=== PATIENT | male | born 1960 | race Caucasian/White ===

== ENCOUNTER 2020-09-14 12:59 | Emergency (ER) | payer BC, OTHER ==
--- OUTSIDE RECORDS SUMMARY | 2020-09-14 13:02 | XMS REPORT | Continuity of Care Document ---
:1960 Author Organization [facility] t Address [address] [place] [address] Care Team Providers Name Role Phone Sergio Thakkar DO Primary Care Physician Jluian WARREN L Attending Clinician Problems Condition Condition Condition Status Onset Resolution Last Treating Co mments Source Name Details Category Date Date Treatment Clinician Date Coronary Coronary Disease Active 2017-04 Overview: [place] artery artery 0-12 Formattin Methodi disease disease 00:00: g of this st involving involving 00 note kaibab kaibab might be coronary coronary different artery of artery of from the kaibab kaibab original. heart heart Added without without automatic angina angina ally from pectoris pectoris request for surgery [id number] Angina Angina Disease Active 2017-04 [place] pectoris pectoris 0-09 Method i 00:00: st 00 CAD in CAD in Disease Active 2015-04 [place] kaibab kaibab 11 Methodi artery artery 00:00: st 00 Essential Essential Disease Active 2015-04 Sophia ston hypertensi hypertensi -11 Me th[place] on on 00:00: st 00 Hyperchole Hyperchole Disease Active 2015-04 [place] sterolemia sterolemia 04-22 Me thodi 00:00: st 00 Presence Presence Disease Active 2015-04 [place] on of stent of stent 04-22 Method i in in 00:00: st coronary coronary 00 artery artery Allergies, Adverse Reactions, Alerts Allergy Allergy Status Severity Reaction(s) Onset Inactive Treating Comm ents Source Name Type Date Date Clinician Lilly Nunes Active Hives 2015-04 [place] xacin ty to 04-22 Method[facility] adverse 00:00: st reaction 00 s to drug Family History Family Member Diagnosis Comments Start Date Stop Date Source Other Coronary artery disease H davidson Pengist Social History Social Habit Start Date Stop Date Quantity Comments Source Tobacco use and 2018-10-25 2018-10-25 Never used Charan Marrero ethodist exposure 00:00:00 00:00:00 Alcohol intake 2018-10-25 2018-10-25 Current drinker of Anupam seth Rast[facility]arian 00:00:00 00:00:00 alcohol (finding) Tobacco Comment 2018-01-27 2018-01-27 Quit smoking 10 [place] [facility] 00:00:00 00:00:00 years ago Alcohol Comment 2016-02-21 2016-02-21 occasional [place] Elida ethodist 00:00:00 00:00:00 Sex Ass[birth year] [facility] ethodist 00:00:00 00:00:00 Smoking Status Start Date Stop Date Source Former smoker 2018-10-25 00:00:00 2018-10-25 00:00:00 [place] [facility] Medications Ordered Filled Start Stop Current Ordering Indication Dosage Frequency Signature Comments Components Source Medication Medication Date Date Medication? Clinician (SIG) Name Name HYDROcodone Yes hydrocodon [place] -acetaminop 04-25 e 10 Methodi hen (NORCO) 08:34: mg-acetami st 10-325 mg 09 nophen 325 per tablet mg tablet, 1 po qd lansoprazol Yes lansoprazo [place] e 04-25 le 30 mg Methodi (PREVACID) 08:34: capsule,de s t 30 MG 09 layed capsule release zolpidem CR 0 Yes zolpidem Anupam seth (AMBIEN CR) 14 ER 12.5 mg Me thodi 12.5 MG CR 08:34: tablet,ext s t tablet 09 ended release,mu ltiphase PRN clopidogrel 0 Yes 75mg Q.5D Take 75 mg Charan (PLAVIX) 75 -14 by mouth 2 Me thodi mg tablet 08:34: (two) st 09 times a day. gemfibrozil Yes 600mg Q.5D Take 600 H davidson (LOPID) 600 9-15 mg by Methodi MG tablet 00:00: mouth 2 st 00 (two) times a day. gabapentin 2018-0 Yes Q.5D Take by [place] 600 mg - mouth 2 Methodi tablet 00:00: (two) st extended 00 times a release 24 day. hr ezetimibe-a 2018-0 Yes QD daily. [place] torvastatin -24 Methodi 10-10 mg 00:00: st tablet 00 CYMBALTA 30 2017-0 Yes 30mg QD Take 30 mg [place] mg capsule 11-01 by mouth Metho di 00:00: daily. st 00 allopurinol 2018-0 Yes QD Take by Sophia ston (ZYLOPRIM) 11-01 mouth Methodi 300 MG 00:00: daily. st tablet 00 COZAAR 100 2017-0 Yes 100mg QD Take 100 [place] mg tablet 7-02 mg by Methodi 00:00: mouth st 00 daily. metoprolol 2018-0 Yes [place] ta-hydrochl 7-02 Methodi orothiaz 00:00: st (LOPRESSOR 00 HCT) 50-25 mg per tablet SINGULAIR 2018-0 Yes 10mg QD Take 10 mg [place] 10 mg 7-02 by mouth Methodi tablet 00:00: nightly. st 00 Procedures This patient has no known procedures. Plan of Care Planned Activity Planned Date Details Comments Source Future Scheduled 2020-11-10 INFLUENZA VACCINE [place] [facility] Test 00:00:00 [code = INFLUENZA VACCINE] Future Scheduled 2009-12-24 COLONOSCOPY SCREENING [place] [facility] Test 00:00:00 [code = COLONOSCOPY SCREENING] Future Scheduled 2009-12-24 SHINGLES VACCINES [place] [facility] Test 00:00:00 (#1) [code = SHINGLES VACCINES (#1)] Future Scheduled 1977-12-24 Hepatitis C screening [place] [facility] Test 00:00:00 (procedure) [code = 980888404] Future Scheduled 1971 COVID-19 VACCINE (1) Sophia ston [facility] Test 00:00:00 [code = COVID-19 VACCINE (1)] Encounters Start End Encounter Admission Attending Care Care Encounter Source Date/Time Date/Time Type Type Clinicians Facility Department ID 2019-05-19 2019-05-19 Office CHARLIE Jordan [id number] 08:42:07 09:08:14 Visit [facility] [id number] Surgical [id number] Specialti [id number] [address] Results This patient has no known results.
--- NOTE | 2020-09-14 14:34 | RAD REPORT ---
EXAM DESCRIPTION: RAD - Tib Fib Right - 09/14/2020 2:10 pm CLINICAL HISTORY: foreign body puncture wound COMPARISON: <Comparisons> FINDINGS: Metallic hook foreign body is seen in the anterior soft tissues of the leg projecting over the level of the fibula. No fracture.
[2020-09-14] MEDS ORDERED: LIDOCAINE 1% MPF 5 ML VIAL ONE (14:45)
[2020-09-14] MEDS ORDERED: TETANUS & DIPHTHERIA TOX,ADULT 0.5 ML VIAL ONE (14:45)
--- NOTE | 2020-09-14 15:12 | EDPHYS ---
Physician Documentation [facility] Name: Jw Morse Age: 59 yrs Sex: Male : 1960 Arrival Date: 09/14/2020 Time: 13:01 Bed 17 Private MD: Anna Thakkar H ED Physician Fabricio Bray HPI: 09/14 13:40 This 59 yrs old Male presents to ER via Ambulatory with complaints of Hook In pm1 leg. 13:40 The patient presents with a puncture wound. The complaints affect the lateral aspect of pm1 right calf. Context: The problem was sustained outdoors, resulted from Fishing, the patient can fully bear weight, the patient is able to ambulate, Problem is a result from a previous injury: No. Onset: The symptoms/episode began/occurred just prior to arrival. Modifying factors: The symptoms are alleviated by nothing. the symptoms are aggravated by nothing. Associated signs and symptoms: Pertinent negatives fever, numbness, swelling, tingling. Treatment prior to arrival includes: Patient attempted to take out the hook by cutting the hook entrance point with his knife. The patient has not experienced similar symptoms in the past. The patient has not recently seen a physician. Historical: - Allergies: 13:24 Ciprofloxacin; ss - PMHx: 13:24 Myocardial infarction; Hypertension; High Cholesterol; GERD; Degenerative disc disease; ss Arthritis; - PSHx: 13:24 cardiac stents; ss - Immunization history:: Adult Immunizations up to date, Last tetanus immunization: unknown. - Social history:: Smoking status: Patient denies any tobacco usage or history of. ROS: 13:40 Constitutional: Negative for fever, chills, and weight loss, Cardiovascular: Negative pm1 for chest pain, palpitations, and edema, Respiratory: Negative for shortness of breath, cough, wheezing, and pleuritic chest pain, Abdomen/GI: Negative for abdominal pain, nausea, vomiting, diarrhea, and constipation. 13:40 Neuro: Negative for headache, weakness, numbness, tingling, and seizure. 13:40 MS/extremity: Positive for puncture, of the lateral aspect of right calf, Negative for decreased range of motion. 13:40 Skin: Positive for puncture, of the lateral aspect of right calf. Exam: 13:40 Constitutional: This is a well developed, well nourished patient who is awake, alert, pm1 and in no acute distress. Head/Face: Normocephalic, atraumatic. 13:40 ENT: Mouth: Lips: normal, Oral mucosa: normal, pink and intact, moist. 13:40 Cardiovascular: Rate: normal, Rhythm: regular, Pulses: no pulse deficits are appreciated. 13:40 Respiratory: Exam negative for acute changes, respiratory distress, shortness of breath, Breath sounds: are clear throughout. 13:40 Musculoskeletal/extremity: Extremities: grossly normal except: noted in the lateral aspect of right calf: puncture, hook. 13:40 Skin: Appearance: normal except for affected area, injury, puncture(s), of the lateral aspect of right calf. 13:40 Neuro: Orientation: is normal, Mentation: is normal, Motor: is normal, moves all fours, Gait: is steady, at a normal pace, without difficulty. Vital Signs: 13:21 BP 156 / 84; Pulse 70; Resp 16; Temp 97.6(TE); Pulse Ox 98% on R/A; Weight 102.06 kg; ss Height 5 ft. 11 in. (180.34 cm); Pain 7/10; 13:21 Body Mass Index 31.38 (102.06 kg, 180.34 cm) ss Procedures: 15:06 Foreign Body Removal: a fishhook, from the right lateral aspect of right calf, by pm1 pushed hook through because unable to back hook out. The patient tolerated the removal well, wound irrigated copiously with betadine and NS. MDM: 13:38 Patient medically screened. [facility] 15:11 Data reviewed: vital signs. Counseling: I had a detailed discussion with the patient pm1 and/or guardian regarding: the historical points, exam findings, and any diagnostic results supporting the discharge/admit diagnosis, radiology results, the need for outpatient follow up, to return to the emergency department if symptoms worsen or persist or if there are any questions or concerns that arise at home. 09/14 13:40 Order name: Tib Fib Right XRAY; Complete Time: 15:13 pm1 09/14 15:11 Order name: Wound dressing; Complete Time: 15:13 pm1 Administered Medications: 14:33 Drug: Tetanus-Diphtheria Toxoid Adult 0.5 ml {Conveyor Weigher Operator: [employer]. Exp: tr6 09/14/2021. Lot #: [id number]. } Route: IM; Site: right deltoid; 15:06 Drug: Lidocaine (1 %) 5 ml {Note: given by JENNIFER Castro.} Volume: 5 ml; Route: tr6 Infiltration; 15:33 Drug: [place] (HYDROcodone-acetaminophen) 5 mg-325 mg 1 tabs Route: PO; tr6 15:33 Drug: Doxycycline 100 mg Route: PO; tr6 Disposition: 09/14/20 15:12 Discharged to Home. Impression: Puncture wound with foreign body, right lower leg. - Condition is Stable. - Discharge Instructions: Puncture Wound. - Prescriptions for Tylenol- Codeine #3 300-30 mg Oral Tablet - take 2 tablets by ORAL route every 6 hours As needed; 20 tablet. Doxycycline Hyclate 100 mg Oral Tablet - take 1 tablet by ORAL route every 12 hours; 20 tablet. - Medication Reconciliation Form, Thank You Letter, Antibiotic Education, Prescription Opioid Use form. - Follow up: Emergency Department; When: As needed; Reason: Worsening of condition. Follow up: Private Physician; When: 2 - 3 days; Reason: Recheck today's complaints, Continuance of care, Re-evaluation by your physician. - Problem is new. - Symptoms have improved. Addendum: 09/17/2020 07:40 Co-signature as Attending Physician, Fabricio Bray MD I agree with the assessment and c chacon plan of care. Signatures: Dispatcher [employer] [facility] Fabricio Bray MD MD cha Smirch, Shelby, RN RN ss Marinas, Patrick, NP SOFTWARE QUALITY ASSURANCE SPECIALIST pm1 Lacy Whitehead RN RN tr6 Corrections: (The following items were deleted from the chart) 09/14 15:38 15:12 09/14/2020 15:12 Discharged to Home. Impression: Puncture wound with foreign tr6 body, right lower leg. Condition is Stable. Forms are Medication Reconciliation Form, Thank You Letter, Antibiotic Education, Prescription Opioid Use. Follow up: Emergency Department; When: As needed; Reason: Worsening of condition. Follow up: Private Physician; When: 2 - 3 days; Reason: Recheck today's complaints, Continuance of care, Re-evaluation by your physician. Problem is new. Symptoms have improved. pm1
--- NOTE | 2020-09-14 15:12 | ER ---
Nurse's Notes [facility] Name: Jw Morse Age: 59 yrs Sex: Male : 1960 Arrival Date: 09/14/2020 Time: 13:01 Bed 17 Private MD: Anna Thakkar H Diagnosis: Puncture wound with foreign body, right lower leg Presentation: 09/14 13:21 Chief complaint: Patient states: hook in R lower leg that occurred 1.5 hours ago while ss fishing. Area is oozing with blood. Pt is on blood thinners. Coronavirus screen: Client denies travel out of the [place] in the last 14 days. Ebola Screen: Patient denies exposure to infectious person. Patient denies travel to an Ebola-affected area in the 21 days before illness onset. Initial Sepsis Screen: Does the patient meet any 2 criteria? No. Patient's initial sepsis screen is negative. Does the patient have a suspected source of infection? No. Patient's initial sepsis screen is negative. Risk Assessment: Do you want to hurt yourself or someone else? Patient reports no desire to harm self or others. Onset of symptoms was September 14, 2020. 13:21 Method Of Arrival: Ambulatory ss 13:21 Acuity: ENRIQUETA 4 ss Historical: - Allergies: 13:24 Ciprofloxacin; ss - PMHx: 13:24 Myocardial infarction; Hypertension; High Cholesterol; GERD; Degenerative disc disease; ss Arthritis; - PSHx: 13:24 cardiac stents; ss - Immunization history:: Adult Immunizations up to date, Last tetanus immunization: unknown. - Social history:: Smoking status: Patient denies any tobacco usage or history of. Screenin:54 Abuse screen: Denies threats or abuse. Denies injuries from another. Nutritional tr6 screening: No deficits noted. Tuberculosis screening: No symptoms or risk factors identified. Fall Risk None identified. Assessment: 13:52 General: Appears in no apparent distress. comfortable, Behavior is calm, cooperative, tr6 appropriate for age. Pain: Complains of pain in right tib fib. Neuro: No deficits noted. Cardiovascular: No deficits noted. Respiratory: No deficits noted. GI: No deficits noted. : No deficits noted. EENT: No deficits noted. Derm: No deficits noted. Musculoskeletal: No deficits noted. Injury Description: Foreign body is located right tib fib has fish hook lodged in skin. pt states that he tried to pull it out, but was unable to. currently site is coagulated blood and site is clean other rush. Vital Signs: 13:21 BP 156 / 84; Pulse 70; Resp 16; Temp 97.6(TE); Pulse Ox 98% on R/A; Weight 102.06 kg; ss Height 5 ft. 11 in. (180.34 cm); Pain 7/10; 13:21 Body Mass Index 31.38 (102.06 kg, 180.34 cm) ED Course: 13:01 Patient arrived in ED. mr 13:01 Anna Thakkar DO is Private Physician. mr 13:22 Triage completed. ss 13:24 Arm band placed on right wrist. ss 13:26 Otto Castro NP is PHCP. pm1 13:26 Fabricio Bray MD is Attending Physician. pm1 13:28 Lacy Whitehead RN is Primary Nurse. tr6 13:54 Patient has correct armband on for positive identification. Call light in reach. Side tr6 rails up X 1. 13:54 No provider procedures requiring assistance completed. tr6 14:10 Tib Fib Right XRAY In Process Unspecified. EDMS Administered Medications: 14:33 Drug: Tetanus-Diphtheria Toxoid Adult 0.5 ml {Survey Supervisor: [employer]. Exp: tr6 09/14/2021. Lot #: [id number]. } Route: IM; Site: right deltoid; 15:06 Drug: Lidocaine (1 %) 5 ml {Note: given by JENNIFER Castro.} Volume: 5 ml; Route: tr6 Infiltration; 15:33 Drug: [place] (HYDROcodone-acetaminophen) 5 mg-325 mg 1 tabs Route: PO; tr6 15:33 Drug: Doxycycline 100 mg Route: PO; tr6 Outcome: 15:12 Discharge ordered by . pm1 15:37 Discharged to home ambulatory, pt refused wheelchair tr6 15:37 Condition: good 15:37 Discharge instructions given to patient, family, significant other, Instructed on discharge instructions, follow up and referral plans. no drinking with medication, no driving heavy equipment, medication usage, safety practices, wound care, Demonstrated understanding of instructions, follow-up care, medications, wound care, Prescriptions given X 2. 15:38 Patient left the ED. tr6 Signatures: Dispatcher [employer] EDThais Stockton Shelby, RN RN ss Otto Castro, SKID MACHINE OPERATOR SKID MACHINE OPERATOR pm1 Lacy Whitehead RN RN tr6
[2020-09-14] MEDS ORDERED: DOXYCYCLINE 100 MG CAP PO ONE (15:41)
[2020-09-14 15:43] VITALS: BP 156/84; TEMP 97.6; O2SAT 98
[2020-09-14] MEDS ORDERED: HYDROCODONE/APAP 5/325 MG TAB ONE (15:47)
== END 2020-09-14 15:38 | disposition home or self-care (01) ==
LOC: ER 12:59
DX: S81.841A Puncture wound with foreign body, right lower leg, initial encounter (principal); I10 Essential (primary) hypertension; Z23 Encounter for immunization; Z95.818 Presence of other cardiac implants and grafts; Z88.1 Allergy status to other antibiotic agents
CPT/HCPCS: 90471; 90714; 99283

== ENCOUNTER 2021-09-18 12:43 | Emergency (ER) | payer OTHER ==
--- OUTSIDE RECORDS SUMMARY | 2021-09-18 12:47 | XMS REPORT | Continuity of Care Document ---
:1960 Author Organization [facility] t Address [address] [place] [address] [address] [place] [address] Care Team Providers Name Role Phone BLOOD Primary Care Physician Unavailable Sheryl LEARNING COORDINATOR Attending Clinician SHERYL Attending Clinician Unavailable JEET Attending Clinician Unavailable MD JEET R. Attending Clinician Unavailable Julian WARREN, L Attending Clinician Doctor Unassigned, Name Attending Clinician Unavailable JEET Admitting Clinician Unavailable MD JEET RCally Admitting Clinician Unavailable Payers Payer Name Policy Type Policy Number Effective Date Expiration Date [facility] [id number] 2021 [facility] 00:00:00 PPO Problems Condition Condition Condition Status Onset Resolution Last Treating Co mments Source Name Details Category Date Date Treatment Clinician Date No known No known Disease Unive rs active active ity of problems problems [facility] Allergies, Adverse Reactions, Alerts Allergy Allergy Status Severity Reaction(s) Onset Inactive Treating Comm ents Source Name Type Date Date Clinician CIPROFLO DRUG Active Unknown-Cmnt Un josé luis XACIN INGREDI 05-07 ity of 00:00: [place] 00 Medical Branch Ciproflo Propensi Active Unknown - Uni vers xacin ty to See comments 05-07 ity of adverse 00:00: [place] reaction 00 [facility] CIPROFLO DRUG Active Hives 2015-04 Univers XACIN INGREDI 04-22 ity of 00:00: [place] 00 [facility] Ciproflo Propensi Active Hives 2015-04 Univer s xacin ty to 04-22 ity of adverse 00:00: [place] reaction 00 Medical s Branch Social History Social Habit Start Date Stop Date Quantity Comments Source Exposure to Not sure [facility] SARS-CoV-2 (event) Medica l Branch Tobacco use and 2021-05-07 2021-05-07 Never used [facility] exposure 00:00:00 00:00:00 Medical Branch Sex [birth year] [facility] 00:00:00 00:00:00 Medical Branch Smoking Status Start Date Stop Date Source Unknown if ever smoked [facility] Never smoker [facility] [place] [facility] Branch Current every day smoker 2019-05-19 00:00[facility] Or[facility] F[facility] Start Stop Current Ordering Indication Dosage Frequency Signature Comments Components Source Medication Medication Date Date Medication? Clinician (SIG) Name Name benzonatate Yes [id number] 100mg Take 1 Univers (TESSALON 05-07 capsule by ity of TAYA) 100 00:00: mouth 3 Jb as mg capsule 00 (three) Medica l times Branch daily as needed for Cough. codeine-gua 2021- No 4647 5mL Take 5 mL Univers ifenesin 05-07 02-03 by mouth ity of 10-100 mg/5 00:00: 05:59 [place] 6 [place] mL oral 00 :00 (six) Medical solution hours as Branch needed for Cough for up to 7 days. Indication s: acute pain icosapent Yes Univers ethyL 1 1-20 ity of gram 00:00: [place] capsule 00 Medical Branch ezetimibe Yes Univers 10 mg 1-19 ity of tablet 00:00: Medical Branch DULoxetine Yes Univers 30 mg 1-10 ity of capsule 00:00: [place] [facility] gemfibroziL Yes Univer s 600 mg 1-10 ity of tablet 00:00: [place] [facility] montelukast Yes Univer s 10 mg 1-10 ity of tablet 00:00: [place] [facility] FENTanyl 25 0 Yes Univer s mcg/hr 1-05 ity of patch 00:00: [place] [id number] Medical Branch HYDROcodone 0 Yes Univer s -acetaminop 1-05 ity of hen 10-325 00:00: [place] mg tablet 00 Medical Branch amLODIPine 2020-04 Yes Univers 10 mg 2-20 ity of tablet 00:00: [place] 00 [facility] metoprolol 2020-04 Yes Univers succinate 2-20 ity of XL 50 mg 24 00:00: [place] hr tablet 00 Medical Branch prasugreL 2020-04 Yes Univers 10 mg 1-22 ity of tablet 00:00: [place] 00 [facility] rosuvastati 2020-04 Yes Univer s n 10 mg 1-22 ity of tablet 00:00: [place] 00 [facility] simvastatin 2020-04 Yes Univer s 20 mg 1-05 ity of tablet 00:00: [place] 00 [facility] traZODone 2020-04 Yes Univers 100 mg 1-05 ity of tablet 00:00: [place] 00 [facility] clopidogreL 2020-0 Yes 75mg Take 75 mg Univers 75 mg 2-07 by mouth. ity of tablet 14:48: [address] HYDROcodone 2020-0 Yes hydrocodon Univers -acetaminop 2-07 e 10 ity of hen 10-325 14:48: mg-acetami [place] mg tablet 40 nophen 325 Medi pradeep mg tablet, Branch 1 po qd lansoprazol 2020-0 Yes lansoprazo Univers e 30 mg 2-07 le 30 mg ity of capsule 14:48: capsule,de Jba s 40 lay Medical release [place] zolpidem 2020-0 Yes zolpidem Unive rs 12.5 mg CR 2-07 ER 12.5 mg ity of tablet 14:48: tablet,ext [place] 40 ended Medical release, Branch ltiphase PRN clopidogreL 2020-0 Yes 75mg Take 75 mg Univers 75 mg 2-07 by mouth. ity of tablet 14:48: [address] HYDROcodone 2020-0 Yes hydrocodon Univers -acetaminop 2-07 e 10 ity of hen 10-325 14:48: mg-acetami [place] mg tablet 40 nophen 325 Medi pradeep mg tablet, Branch 1 po qd lansoprazol 2020-0 Yes lansoprazo Univers e 30 mg 2-07 le 30 mg ity of capsule 14:48: capsule,de [place] 40 lay[place] Medical release [place] zolpidem 2020-0 Yes zolpidem Unive rs 12.5 mg CR 2-07 ER 12.5 mg ity of tablet 14:48: tablet,ext [place] 40 ended Medical release,mu Branch ltiphase PRN methylPREDN 2020-0 Yes [id number] Take by [facility] 05-19 9107 mouth ity of (MEDROL, 00:00: SEE-INSTRU Jb as HARMEET,) 4 mg 00 CTIONS. Medica l tablets follow Branch package directions methylPREDN 2020-0 Yes [id number] Take by [facility] 05-19 9107 mouth ity of (MEDROL, 00:00: SEE-INSTRU Jb as HARMEET,) 4 mg 00 CTIONS. Medica l tablets follow Branch package directions lidocaine 5 2020-0 Yes Univer s % (700 2-03 ity of mg/patch) 00:00: [place] patch 00 Medical Branch lidocaine 5 2020-0 Yes Univer s % (700 2-03 ity of mg/patch) 00:00: [place] patch 00 Medical Branch proMETHazin 2020-0 Yes TAKE 1 Univ ers e 25 mg 1-17 TABLET BY ity of tablet 00:00: MOUTH 00 DAILY Medical NEEDED FOR Branch NAUSEA MAY MAKE DROWSY proMETHazin 2020-0 Yes TAKE 1 Univ ers e 25 mg 1-17 TABLET BY ity of tablet 00:00: MOUTH 00 DAILY Medical NEEDED FOR Branch NAUSEA MAY MAKE DROWSY cyclobenzap 2020-0 Yes TAKE 1 Univ ers rine 10 mg 1-16 TABLET BY ity of tablet 00:00: MOUTH AT [place] 00 BEDTIME Medical NEEDED Branch MUSCLE SPASM MAY MAKE DROWSY cyclobenzap 2020-0 Yes TAKE 1 Univ ers rine 10 mg 1-16 TABLET BY ity of tablet 00:00: MOUTH AT [place] 00 BEDTIME Medical NEEDED Branch MUSCLE SPASM MAY MAKE DROWSY gemfibrozil 2018-0 Yes 600mg Take 600 U nivers 600 mg 9-15 mg by ity of tablet 00:00: mouth. 00 Medical Branch gemfibrozil 2018-0 Yes 600mg Take 600 U nivers 600 mg 9-15 mg by ity of tablet 00:00: mouth. 00 Medical Branch gabapentin 2018-0 Yes Take by Uni vers ER 600 mg 7-26 mouth. ity of tablet, 00:00: [place] extended 00 Medical release 24 Branch hr gabapentin 2018-0 Yes Take by Uni vers ER 600 mg 7-26 mouth. ity of tablet, 00:00: [place] extended 00 Medical release 24 Branch hr allopurinoL 2018-0 Yes Take by Un josé luis 300 mg 7-23 mouth. ity of tablet 00:00: [place] 00 Medical Branch DULoxetine 2018-0 Yes 30mg Take 30 mg U nivers (CYMBALTA) 7-23 by mouth. ity of 30 mg 00:00: [place] capsule 00 Medical Branch allopurinoL 2018-0 Yes Take by Un josé luis 300 mg 7-23 mouth. ity of tablet 00:00: [place] 00 Medical Branch DULoxetine 2018-0 Yes 30mg Take 30 mg U nivers (CYMBALTA) 7-23 by mouth. ity of 30 mg 00:00: [place] capsule 00 Medical Branch losartan 2018-0 Yes 100mg Take 100 Univ ers (COZAAR) 7-02 mg by ity of 100 mg 00:00: mouth. [place] tablet 00 Medical Branch metoprolol 2018-0 Yes Univers ta-hydrochl 7-02 ity of orothiaz 00:00: [place] 50-25 mg 00 Medical per tablet Branch montelukast 2018-0 Yes 10mg Take 10 mg Univers (SINGULAIR) 7-02 by mouth. ity of 10 mg 00:00: [place] tablet 00 Medical Branch losartan 2018-0 Yes 100mg Take 100 Univ ers (COZAAR) 7-02 mg by ity of 100 mg 00:00: mouth. [place] tablet 00 Medical Branch metoprolol 2018-0 Yes Univers ta-hydrochl 7-02 ity of orothiaz 00:00: [place] 50-25 mg 00 Medical per tablet Branch montelukast 2018-0 Yes 10mg Take 10 mg Univers (SINGULAIR) 7-02 by mouth. ity of 10 mg 00:00: [place] tablet 00 Medical Branch Vital Signs Vital Name Observation Time Observation Value Comments Source Systolic blood 2021-05-08 00:01:00 164 mm[Hg] Univer sity of pressure [facility] Diastolic blood 2021-05-08 00:01:00 78 mm[Hg] Unive rsity of pressure [facility] Heart rate 2021-05-08 00:01:00 70 /min Universi ty of [facility] Body temperature 2021-05-08 00:01:00 36.78 Geni Univ ersity of [facility] Respiratory rate 2021-05-08 00:01:00 18 /min Univ ersity of [facility] Branch Body height 2021-05-08 00:01:00 180.3 cm Universi ty of [place] [facility] Body weight 2021-05-08 00:01:00 104.327 kg Universi ty of [place] [facility] BMI 2021-05-08 00:01:00 32.08 kg/m2 Universi ty of [facility] Branch Oxygen saturation in 2021-05-08 00:01:00 95 /min University Arterial blood by [facility] Pulse oximetry Branch Systolic blood 2019-05-19 14:48:00 146 mm[Hg] Univer sity of pressure [facility] Branch Diastolic blood 2019-05-19 14:48:00 83 mm[Hg] Unive rsity of pressure [facility] Branch Heart rate 2019-05-19 14:48:00 60 /min Universi ty of [facility] Branch Respiratory rate 2019-05-19 14:48:00 18 /min Univ ersity of [facility] Body height 2019-05-19 14:48:00 180.3 cm Universi ty of [place] [facility] Body weight 2019-05-19 14:48:00 105.235 kg Universi ty of [place] [facility] BMI 2019-05-19 14:48:00 32.36 kg/m2 Universi ty of [facility] Branch Systolic blood 2019-05-19 14:48:00 146 mm[Hg] Univer sity of pressure [facility] Branch Diastolic blood 2019-05-19 14:48:00 83 mm[Hg] Unive rsity of pressure [facility] Heart rate 2019-05-19 14:48:00 60 /min Universi ty of [facility] Branch Respiratory rate 2019-05-19 14:48:00 18 /min Univ ersity of [facility] Branch Body height 2019-05-19 14:48:00 180.3 cm Universi ty of [place] [facility] Body weight 2019-05-19 14:48:00 105.235 kg Universi ty of [place] [facility] BMI 2019-05-19 14:48:00 32.36 kg/m2 Universi ty of [place] [facility] Procedures Procedure Date / Time Performed Performing Clinician [facility] e ASSIGNMENT OF BENEFITS 2019-05-19 14:40:22 Doctor Unassigned, No [facility] Branch Encounters Start End Encounter Admission Attending Care Care Encounter Source Date/Time Date/Time Type Type Clinicians Facility Department ID 2021-05-07 2021-05-07 Urgent [facility] [id number] Univers 18:20:00 18:25:41 Care Shandra [facility] [id number] i ty of [place] [id number] Jb as MAHNAZ?BLEA [phone] Nm dical [address] MEDICAL OFFICE BUILDING 2021-05-07 2021-05-07 [facility] [id number] Univers 18:20:00 18:25:41 SHANDRA pearson [facility] 2021-05-07 2021-05-07 [facility] [id number] [facility] 18:20:00 18:25:41 SHANDRA clifford [facility] 2021-04-23 2021-04-23 Outpatient MARCANO, [facility] [id number] [place] 00:00:00 00:00:00 CINDY 418 Method i 2021-03-31 2021-03-31 Outpatient MARCANO, [facility] [id number] [place] 00:00:00 00:00:00 CINDY 250 Method i 2021-03-03 2021-03-03 [id number] [place] 00:00:00 00:00:00 CINDY 827 Method i 2021-02-28 2021-02-28 [facility] [id number] [place] 00:00:00 00:00:00 CINDY 772 Method i 2021-02-28 2021-02-28 [facility] [id number] [place] 00:00:00 00:00:00 CINDY 088 Method i 2021-02-21 2021-02-21 [facility] [id number] [place] 00:00:00 00:00:00 CINDY 333 Method i 2019-05-19 2019-05-19 [facility] [id number] Univers 08:42:07 09:08:14 Visit [facility] [id number] it y of Surgical [id number] Jb as Specialti [id number] Nm dical es 198 Branch [place] 2019-05-19 2019-05-19 Office CHARLIE Jordan [id number] 08:42:07 09:08:14 Visit [facility] [id number] Surgical [id number] Specialti [id number] es 198 [place] 2019-05-19 2019-05-19 Orders Doctor MIK [id number] Univers 00:00:00 00:00:00 Only Unassigned, JUAN [id number] ity of [facility] [id number] Jb as [id number] Medi pradeep 009 Branch Results Test Description Test Time Test Comments Results Result Comments Source SARS-CoV-2 (COVID-19) RNA [Presence] in Respiratory sp ecimen by 2021-02-28 15:10:40 [place] with probe detection Test Item Value Reference Range Interpretation Comme nts SARS-CoV-2 (COVID-19) RNA [Presence] in Respiratory Not detected No t-Detected specimen by [place] with probe detection (test code = 80155-8) Whether patient is employed in a healthcare setting (test code = 50158-3) Whether the patient has symptoms related to condition of interest (test code = 77380-2) Patient was hospitalized because of this condition (test code = 14305-8) Whether the patient was admitted to intensive care unit (ICU) for condition of interest (test code = 91807-9) Whether patient resides in a congregate care setting (test code = 00287-9)
[2021-09-18] MEDS ORDERED: HYDROCODONE/CHLORPHEN 5 ML/OSYR ONE (15:01)
[2021-09-18] MEDS ORDERED: ONDANSETRON 4 MG/2 ML VIAL ONE (15:01)
[2021-09-18 15:05] LABS: Absolute Lymphocytes (CBC) 0.7 K/uL (0.7-4.9); Hematocrit 48.2 % (39.6-49.0); Lymphocytes % 13.1 % (15.3-44.8); MPV 8.7 fL (7.6-11.3); RBC Red Blood Cell Count 5.12 M/uL (4.33-5.43)
[2021-09-18 15:11] LABS: Urine Blood Negative (Negative); Urine Glucose Negative (Negative); Urine Protein 2+ (Negative); Urine Specific Gravity 1.025 (1.005-1.030); Urine pH 5.5 (5.0-7.0)
[2021-09-18 15:13] LABS: Albumin 4.2 g/dL (3.4-5.0); Bilirubin Total 0.6 mg/dL (0.2-1.0); Magnesium 2.4 mg/dL (1.8-2.4); Potassium 3.7 mmol/L (3.5-5.1); Protein, Total 8.3 g/dL (6.4-8.2)
--- NOTE | 2021-09-18 16:06 | RAD REPORT ---
EXAM DESCRIPTION: Jorge Single View09/18/2021 2:22 pm CLINICAL HISTORY: Cough COMPARISON: 2009 FINDINGS: Chronic elevation left hemidiaphragm. Old left rib fractures Lungs appear clear of acute infiltrate. The heart is normal size
--- NOTE | 2021-09-18 16:06 | RAD REPORT ---
EXAM DESCRIPTION: CT - Abdomen Pelvis W Contrast - 09/18/2021 3:52 pm CLINICAL HISTORY: Abdominal pain right lower quadrant pain COMPARISON: none. TECHNIQUE: Computed axial tomography of the abdomen pelvis was obtained. 100 cc Isovue-300 was admin istered intravenously. Oral contrast was not requested which limits evaluation of bowel and appendix All CT scans are performed using dose optimization technique as appropriate and may include automated exposure control or mA/KV adjustment according to patient size. FINDINGS: Fatty liver The Spleen, pancreas, adrenal and kidneys appear unremarkable. There is no evidence of diverticulitis. Fluid is present throughout small bowel. Some of the loops are mildly dilated. Normal appendix. Marked osteoarthritis right hip IMPRESSION: Fluid within small bowel. Mild dilatation of several small bowel loops. This may indicat e enteritis.
--- NOTE | 2021-09-18 16:36 | EDPHYS ---
Physician Documentation [facility] [place] [place] Name: Jw Morse Age: 60 yrs Sex: Male : 1960 Arrival Date: 09/18/2021 Time: 12:51 Bed DIS1 Private MD: Anna Thakkar H ED Physician Karlos Norman HPI: 09/18 13:00 This 60 yrs old Male presents to ER via Ambulatory with complaints of Cough, cp Congestion, Weakness. 13:00 The patient or guardian reports cough, that is intermittent. Onset: The cp symptoms/episode began/occurred 8 day(s) ago. 13:00 Severity of symptoms: in the emergency department the symptoms are unchanged, despite cp home interventions. 13:00 Associated signs and symptoms: Pertinent positives: diarrhea, nausea, sore throat, cp vomiting, abdominal pain, Pertinent negatives: chest pain, fever. Historical: - Allergies: 13:08 Ciprofloxacin; ll1 - PMHx: 13:08 Arthritis; Degenerative disc disease; GERD; High Cholesterol; Hypertension; Myocardial ll1 infarction; - PSHx: 13:08 heart SX with 19 stents; ll1 - Immunization history:: Client reports receiving the 2nd dose of the Covid vaccine. - Social history:: Smoking status: Patient denies any tobacco usage or history of. ROS: 13:05 Constitutional: Negative for fever, poor PO intake. cp 13:05 Eyes: Negative for injury, pain, redness, and discharge. cp 13:05 ENT: Positive for sore throat, Negative for drainage from ear(s), ear pain, difficulty swallowing, difficulty handling secretions. 13:05 Cardiovascular: Negative for chest pain, edema, palpitations. 13:05 Respiratory: Positive for cough, "sounds productive", Negative for shortness of breath, wheezing. 13:05 Abdomen/GI: Positive for abdominal pain, diarrhea, Negative for vomiting, constipation, black/tarry stool, rectal bleeding. 13:05 Back: Negative for pain at rest, pain with movement. 13:05 : Negative for urinary symptoms. 13:05 Skin: Negative for cellulitis, rash. 13:05 Neuro: Positive for weakness, Negative for altered mental status, headache, numbness. 13:05 All other systems are negative. Exam: 13:10 Constitutional: The patient appears in no acute distress, alert, awake, cp non-diaphoretic, non-toxic, well developed, well nourished. 13:10 Head/Face: Normocephalic, atraumatic. cp 13:10 Eyes: Periorbital structures: appear normal, Conjunctiva: normal, no exudate, no injection, Sclera: no appreciated abnormality, Lids and lashes: appear normal, bilaterally. 13:10 ENT: External ear(s): are unremarkable, Ear canal(s): are normal, TM's: dullness, bilaterally, Nose: is normal, Mouth: is normal, Posterior pharynx: Airway: no evidence of obstruction, patent. 13:10 Neck: ROM/movement: is normal, is supple, without pain, no range of motions limitations, no meningismus. 13:10 Chest/axilla: Inspection: normal, Palpation: is normal, no crepitus, no tenderness. 13:10 Cardiovascular: Rate: normal, Rhythm: regular, Edema: is not appreciated, JVD: is not appreciated. 13:10 Respiratory: the patient does not display signs of respiratory distress, Respirations: normal, no use of accessory muscles, no retractions, labored breathing, is not present, Breath sounds: bronchial sounds, that are mild, are heard diffusely, decreased breath sounds, are not appreciated, stridor, is not appreciated, + upper airway congestion. 13:10 Abdomen/GI: Inspection: abdomen appears normal, Bowel sounds: active, all quadrants, Palpation: soft, in all quadrants, mild abdominal tenderness, in the right lower quadrant, rebound tenderness, is not appreciated, involuntary guarding, is not appreciated. 13:10 Back: CVA tenderness, is absent. 13:10 Skin: no rash present. 13:10 Neuro: Orientation: to person, place \\T\\ time. Mentation: is normal, Motor: moves all fours, strength is normal, Sensation: is normal, Gait: is steady, at a normal pace, without difficulty. Vital Signs: 13:06 BP 146 / 71; Pulse 81; Resp 18; Temp 98.7; Pulse Ox 96% on R/A; Weight 108.86 kg; ll1 Height 5 ft. 11 in. (180.34 cm); Pain 7/10; 13:06 Body Mass Index 33.47 (108.86 kg, 180.34 cm) ll1 MDM: 13:33 Patient medically screened. cp 14:00 Differential Diagnosis: Bronchitis Influenza Sinusitis Pharyngitis Otitis Media Viral cp Syndrome Pneumonia. 16:35 Data reviewed: vital signs, nurses notes, lab test result(s), radiologic studies, CT cp scan, plain films. 16:35 Test interpretation: by ED physician or midlevel provider: plain radiologic studies. cp Counseling: I had a detailed discussion with the patient and/or guardian regarding: the historical points, exam findings, and any diagnostic results supporting the discharge/admit diagnosis, lab results, radiology results, the need for outpatient follow up, a family practitioner, to return to the emergency department if symptoms worsen or persist or if there are any questions or concerns that arise at home. Response to treatment: the patient's symptoms have mildly improved after treatment, and as a result, I will discharge patient. 16:35 ED course: VSS. Patient appears non-toxic and no signs of respiratory distress. Will cp discharge to home for continued monitoring. 09/18 12:56 Order name: Flu; Complete Time: 14:48 ss 09/18 12:56 Order name: COVID-19 SARS RT PCR (Document "Date of Onset" if Symptomatic); Complete ss Time: 14:48 09/18 14:48 Interpretation: Reviewed. 09/18 13:54 Order name: CBC with Diff; Complete Time: 15:38 09/18 15:38 Interpretation: Normal except: ARPITA% 74.8; LYM% 13.1. 09/18 13:54 Order name: CMP; Complete Time: 15:38 09/18 15:38 Interpretation: Normal except: NA 134; GLUC 146; GFR 80; ALK 123; TP 8.3; GLOB 4.1; A/G cp 1.0. 09/18 13:54 Order name: Lipase; Complete Time: 15:38 09/18 16:13 Interpretation: Reviewed. 09/18 13:54 Order name: IV Saline Lock; Complete Time: 14:49 09/18 13:54 Order name: Labs collected and sent; Complete Time: 14:49 09/18 13:54 Order name: XRAY Chest (1 view); Complete Time: 16:12 09/18 16:12 Interpretation: Report review. 09/18 13:54 Order name: CT Abd/Pelvis - PO and IV Contrast; Complete Time: 16:12 cp 09/18 13:54 Order name: Magnesium; Complete Time: 15:38 cp 09/18 15:11 Order name: Urine Dipstick-Ancillary; Complete Time: 15:38 EDMS 09/18 16:13 Interpretation: Normal except: UKET Trace; UPROT 2+. cp 09/18 13:54 Order name: Urine Dipstick-Ancillary (obtain specimen); Complete Time: 15:27 cp 09/18 16:15 Order name: PO challenge; Complete Time: 16:30 cp Administered Medications: 15:01 Drug: Zofran (Ondansetron) 4 mg Route: IVP; Site: left antecubital; ss 16:29 Follow up: Response: No adverse reaction; Marked relief of symptoms ss 15:02 Drug: Tussionex Pennkinetic ER (chlorpheniramine-hydrocodone) Suspension 5 ml Route: PO;ss 16:29 Follow up: Response: No adverse reaction; Marked relief of symptoms ss Disposition: 17:54 Attestation: The patient's history, exam findings, diagnostics, and a summary of any [facility] interventions or procedures was reviewed in detail with Fabricio SKINNER. Disposition Summary: 09/18/21 16:35 Discharge Ordered Location: Home cp Problem: new cp Symptoms: have improved cp Condition: Stable cp Diagnosis - Acute bronchitis, unspecified cp - Diarrhea, unspecified cp Followup: cp - With: Private Physician - When: 2 - 3 days - Reason: Recheck today's complaints Discharge Instructions: - Discharge Summary Sheet cp - Acute Bronchitis, Adult cp - Food Choices to Help Relieve Diarrhea, Adult cp - Diarrhea, Adult cp Forms: - Medication Reconciliation Form cp - Thank You Letter cp - Antibiotic Education cp - Prescription Opioid Use cp Prescriptions: - Bromfed DM 2-30-10 mg/5 mL Oral syrup - take 10 milliliter by ORAL route every 6 hours; 200 milliliter; Refills: 0, cp Product Selection Permitted - Zithromax Z-Paulino 250 mg Oral Tablet - take 1 tablet by ORAL route as directed for 5 days Day 1 - take two (2) tablets cp one time. Day 2, 3, 4 , 5 take one (1) tablet once daily.; 6 tablet; Refills: 0, Product Selection Permitted Signatures: Dispatcher [employer] EDLillian Pérez, RN RN ss Fabricio Parker PA PA cp Lewis, Lynsay, RN RN ll1 Karlos Norman MD MD [id number] Corrections: (The following items were deleted from the chart) 15:38 15:38 Normal except. cp cp
--- NOTE | 2021-09-18 16:36 | ER ---
Nurse's Notes [facility] Name: Jw Morse Age: 60 yrs Sex: Male : 1960 Arrival Date: 09/18/2021 Time: 12:51 Bed DIS1 Private MD: Anna Thakkar H Diagnosis: Acute bronchitis, unspecified;Diarrhea, unspecified Presentation: 09/18 13:06 Chief complaint: Patient states: Cough, congestion, weak, body aches, OCHOA, N/V/D, no ll1 appetite for 8 days. Coronavirus screen: Vaccine status: Patient reports receiving the 2nd dose of the covid vaccine. Client denies travel out of the [place] in the last 14 days. congestion, cough unrelated to allergies, diarrhea, fatigue, fever, headache, nausea, vomiting. Client presents with at least one sign or symptom that may indicate coronavirus-19. Standard/surgical mask placed on the client. Ebola Screen: Patient denies travel to an Ebola-affected area in the 21 days before illness onset. Resp Distress? Mild respiratory distress is noted. Initial Sepsis Screen: Does the patient meet any 2 criteria? No. Patient's initial sepsis screen is negative. Does the patient have a suspected source of infection? Yes: Productive cough/pneumonia. Risk Assessment: Do you want to hurt yourself or someone else? Patient reports no desire to harm self or others. Onset of symptoms was September 10, 2021. 13:06 Method Of Arrival: Ambulatory ll1 13:06 Acuity: ENRIQUETA 3 ll1 Historical: - Allergies: 13:08 Ciprofloxacin; ll1 - PMHx: 13:08 Arthritis; Degenerative disc disease; GERD; High Cholesterol; Hypertension; Myocardial ll1 infarction; - PSHx: 13:08 heart SX with 19 stents; ll1 - Immunization history:: Client reports receiving the 2nd dose of the Covid vaccine. - Social history:: Smoking status: Patient denies any tobacco usage or history of. Assessment: 15:59 Reassessment: Patient appears in no apparent distress at this time. No changes from ss previously documented assessment. Patient and/or family updated on plan of care and expected duration. Pain level reassessed. Patient is alert, oriented x 3, equal unlabored respirations, skin warm/dry/pink. Awaiting CT results. 16:30 Reassessment: All results back. Awaiting disposition. PT drank 220 mL of water. ss Vital Signs: 13:06 BP 146 / 71; Pulse 81; Resp 18; Temp 98.7; Pulse Ox 96% on R/A; Weight 108.86 kg; ll1 Height 5 ft. 11 in. (180.34 cm); Pain 7/10; 13:06 Body Mass Index 33.47 (108.86 kg, 180.34 cm) ll1 ED Course: 12:51 Patient arrived in ED. mr 12:51 Anna Thakkar DO is Private Physician. mr 13:00 [facility] cp 13:00 Karlos Norman MD is Attending Physician. cp 13:08 Triage completed. ll1 13:08 Arm band placed on. ll1 14:23 XRAY Chest (1 view) In Process Unspecified. EDMS 14:51 Lillian Velazco RN is Primary Nurse. ss 14:51 Inserted saline lock: 22 gauge in right antecubital area, using aseptic technique. ss Blood collected. Patient maintains SpO2 saturation greater than 95% on room air. 15:53 CT Abd/Pelvis - PO and IV Contrast In Process Unspecified. EDMS 16:58 No provider procedures requiring assistance completed. IV discontinued, intact, ss bleeding controlled, No redness/swelling at site. Pressure dressing applied. Administered Medications: 15:01 Drug: Zofran (Ondansetron) 4 mg Route: IVP; Site: left antecubital; ss 16:29 Follow up: Response: No adverse reaction; Marked relief of symptoms ss 15:02 Drug: Tussionex Pennkinetic ER (chlorpheniramine-hydrocodone) Suspension 5 ml Route: PO;ss 16:29 Follow up: Response: No adverse reaction; Marked relief of symptoms ss Outcome: 16:35 Discharge ordered by MD. cp 16:58 Patient left the ED. ss 16:58 Discharged to home ambulatory. ss 16:58 Condition: good 16:58 Discharge instructions given to patient, family, Instructed on discharge instructions, follow up and referral plans. medication usage, Demonstrated understanding of instructions, follow-up care, Prescriptions given X 2. Signatures: Dis[facility] Thais Clark mr Lillian Velazco RN RN ss Fabricio Parker PA PA cp Bhanu Geiger, RN RN ll1
[2021-09-18 17:24] VITALS: BP 146/71; TEMP 98.7; O2SAT 96
== END 2021-09-18 16:58 | disposition home or self-care (01) ==
LOC: ER 12:43
DX: J20.9 Acute bronchitis, unspecified (principal); R19.7 Diarrhea, unspecified; I10 Essential (primary) hypertension; I25.2 Old myocardial infarction; Z20.822 Contact with and (suspected) exposure to COVID-19; Z95.818 Presence of other cardiac implants and grafts; Z88.1 Allergy status to other antibiotic agents
CPT/HCPCS: 85025; 36415; 83735; 81003; 83690; 80053; 87804 ×2; 74177; 71045; 96374; 99284; U0003; Q9967; J2405